=== PATIENT | male | born 1945 | race Caucasian/White ===

== ENCOUNTER 2017-04-29 15:34 | Emergency (ER) | payer OTHER ==
[~2017-04-29] VITALS: Ht 180.3 cm; Wt 82.3 kg
[2017-04-29 16:26] LABS: HEMATOCRIT 37.9 % (38.0-50.0); HEMOGLOBIN 12.8 G/DL (12.5-16.6); IMM.RETIC FRACTION 9.2 % (3-19); MCH 28.9 PG (29.0-34.0); MCHC 33.8 G/DL (30.0-36.0); MCV 85.6 FL (86-99); PLATELET COUNT 154 K/uL (156-360); RBC DIS.WIDTH-CV 15.2 % (11.8-14.6); RBC DIS.WIDTH-SD 46.9 % (39-53); RED BLOOD COUNT 4.43 M/uL (4.00-5.50); RETIC HGB EQUIVALENT 41.4 (28-36); RETICULOCYTE COUNT 0.4 % (0.5-1.8); WHITE BLOOD COUNT 2.6 K/uL (4.1-10.2)
[2017-04-29 16:36] LABS: ALBUMIN 3.6 g/dL (3.2-4.8)
[2017-04-29 16:37] LABS: CHLORIDE 106 mEq/L (99-109); POTASSIUM 4.3 mEq/L (3.7-5.4); SODIUM 135 mEq/L (136-147)
[2017-04-29 16:39] LABS: GLUCOSE 223 mg/dL (70-99); TOTAL PROTEIN 6.1 g/dL (6.4-8.3)
[2017-04-29 16:41] LABS: TOTAL BILIRUBIN 1.2 mg/dL (0.0-1.0)
[2017-04-29 16:42] LABS: ALKALINE PHOSPHATASE 105 IU/L (3-129)
[2017-04-29 16:43] LABS: CREATININE 0.8 mg/dL (0.6-1.3)
[2017-04-29 16:44] LABS: AST (GOT) 20 IU/L (2-34); UREA NITROGEN (BUN) 32 mg/dL (9-23)
[2017-04-29 16:45] LABS: ALT (GPT) 21 IU/L (3-49)
[2017-04-29 16:48] LABS: GFR ESTIMATE (CALCULATED) > 59 mL/min/ (58.99-99999); TROP-I INTERPRETATION NEGATIVE; TROPONIN-I < 0.01 ng/mL (0.0-0.30)
[2017-04-29] MEDS ORDERED: TAMIFLU75 MG PO (20:15)
[2017-04-29 20:56] VITALS: BP 118/72
== END 2017-04-29 20:58 | disposition home or self-care (01) ==
LOC: EME 15:34
PROVIDERS: Emergency Medicine Emergency Medical Services
DX: J06.9 Acute upper respiratory infection, unspecified (principal); E86.0 Dehydration; D75.9 Disease of blood and blood-forming organs, unspecified; E11.65 Type 2 diabetes mellitus with hyperglycemia; I25.2 Old myocardial infarction; F17.200 Nicotine dependence, unspecified, uncomplicated; Z86.73 Personal history of transient ischemic attack (TIA), and cerebral infarction without residual deficits; Z79.899 Other long term (current) drug therapy; Z88.8 Allergy status to other drugs, medicaments and biological substances
CPT/HCPCS: 71046; 80053; 83880; 84484; 85027; 85046; 87502; 93005; 99281; 99285; J7040

== ENCOUNTER 2017-08-25 22:10 | Inpatient (IN) | payer OTHER ==
[~2017-08-25] VITALS: Ht 180.3 cm; Wt 80.2 kg
[~2017-08-25 22:10] MED LIST: TAMIFLU75 MG PO
[2017-08-25 23:36] LABS: HEMATOCRIT 38.2 % (38.0-50.0); HEMOGLOBIN 12.1 G/DL (12.5-16.6); MCH 28.5 PG (29.0-34.0); MCHC 31.7 G/DL (30.0-36.0); MCV 90.1 FL (86-99); NRBC (%) 0.5 /100 WBC (0-0); PLATELET COUNT 191 K/uL (156-360); RBC DIS.WIDTH-CV 16.1 % (11.8-14.6); RBC DIS.WIDTH-SD 53.1 % (39-53); RED BLOOD COUNT 4.24 M/uL (4.00-5.50); WHITE BLOOD COUNT 4.3 K/uL (4.1-10.2)
[2017-08-25 23:42] LABS: INTER. NORMALIZED RATIO 1.1
[2017-08-25 23:44] LABS: PTT 29.8 SEC (25-37)
[2017-08-25 23:46] LABS: ALBUMIN 3.5 g/dL (3.2-4.8)
[2017-08-25 23:47] LABS: CHLORIDE 100 mEq/L (99-109); POTASSIUM 3.5 mEq/L (3.7-5.4); SODIUM 142 mEq/L (136-147)
[2017-08-25 23:49] LABS: GLUCOSE 194 mg/dL (70-99); TOTAL PROTEIN 6.1 g/dL (6.4-8.3)
[2017-08-25 23:51] LABS: TOTAL BILIRUBIN 0.5 mg/dL (0.0-1.0)
[2017-08-25 23:52] LABS: ALKALINE PHOSPHATASE 84 IU/L (3-129)
[2017-08-25 23:53] LABS: CREATININE 0.8 mg/dL (0.6-1.3); GFR ESTIMATE (CALCULATED) > 59 mL/min/ (58.99-99999)
[2017-08-25 23:54] LABS: AST (GOT) 16 IU/L (2-34); UREA NITROGEN (BUN) 19 mg/dL (9-23)
[2017-08-25 23:55] LABS: ALT (GPT) 16 IU/L (3-49)
[2017-08-25 23:56] LABS: LIPASE 25 U/L (1.0-51.0)
[2017-08-25 23:57] LABS: TROP-I INTERPRETATION NEGATIVE; TROPONIN-I < 0.01 ng/mL (0.0-0.30)
[2017-08-26 04:48] VITALS: BP 129/63
[2017-08-26 05:39] LABS: HEMATOCRIT 35.8 % (38.0-50.0); HEMOGLOBIN 11.3 G/DL (12.5-16.6); MCH 28.5 PG (29.0-34.0); MCHC 31.6 G/DL (30.0-36.0); MCV 90.4 FL (86-99); NRBC (%) 0.5 /100 WBC (0-0); PLATELET COUNT 193 K/uL (156-360); RBC DIS.WIDTH-CV 16.2 % (11.8-14.6); RBC DIS.WIDTH-SD 53.3 % (39-53); RED BLOOD COUNT 3.96 M/uL (4.00-5.50); WHITE BLOOD COUNT 3.8 K/uL (4.1-10.2)
[2017-08-26 05:49] LABS: CHLORIDE 102 mEq/L (99-109); POTASSIUM 4.1 mEq/L (3.7-5.4); SODIUM 137 mEq/L (136-147)
[2017-08-26 05:50] LABS: MAGNESIUM 1.8 mg/dL (1.3-2.7)
[2017-08-26 05:51] LABS: GLUCOSE 208 mg/dL (70-99)
[2017-08-26 05:55] LABS: CREATININE 0.7 mg/dL (0.6-1.3); GFR ESTIMATE (CALCULATED) > 59 mL/min/ (58.99-99999)
[2017-08-26 05:56] LABS: UREA NITROGEN (BUN) 16 mg/dL (9-23)
[2017-08-26 07:30] VITALS: BP 131/62
[2017-08-26 11:01] LABS: APPEARANCE CLEAR ((CLEAR)); BILIRUBIN NEGATIVE; BLOOD NEGATIVE; COLOR STRAW ((YELLOW)); GLUCOSE (STRIP) >=500; KETONES NEGATIVE; LEUKOCYTES NEGATIVE; NITRITE NEGATIVE; PROTEIN (STRIP) NEGATIVE; SPECIFIC GRAVITY 1.021 (1.000-1.030); UCUL ADDED? NO; UROBILINOGEN 0.2 MG/DL (0.2-1.0)
[2017-08-26 12:06] VITALS: BP 129/63
[2017-08-26] MEDS ORDERED: METOPROLOL TART50 MG PO (12:25)
[2017-08-26] MEDS ORDERED: PREDNISONE5 MG PO (12:25)
[2017-08-26] MEDS ORDERED: CALCIUM 600 MG1 EACH PO (12:27)
[2017-08-26] MEDS ORDERED: ATORVASTATIN CA80 MG PO (12:28)
[2017-08-26] MEDS ORDERED: LO-DOSE ASPIRIN81 M2 PO (12:28)
[2017-08-26] MEDS ORDERED: LISINOPRIL40 MG PO (12:29)
[2017-08-26] MEDS ORDERED: VITAMIN D31000 UNIT PO (12:29)
[2017-08-26] MEDS ORDERED: GLIPIZIDE10 MG PO (12:29)
[2017-08-26] MEDS ORDERED: ISOSORBIDE MONO30 MG PO (12:30)
[2017-08-26] MEDS ORDERED: PLAVIX75 MG PO (12:30)
[2017-08-26] MEDS ORDERED: NORVASC2.5 MG PO (12:30)
[2017-08-26] MEDS ORDERED: ONE DAILY MULT1 EACH PO (12:34)
[2017-08-26] MEDS ORDERED: DEXAMETHASONE4 MG PO (12:51)
[2017-08-26 14:08] LABS: TROP-I INTERPRETATION NEGATIVE; TROPONIN-I 0.01 ng/mL (0.0-0.30)
[2017-08-26 20:00] VITALS: BP 138/64
[2017-08-26] MEDS ORDERED: DILAUDID2 MG PO (22:54)
[2017-08-26] MEDS ORDERED: MS CONTIN,ORAMO15 M1 PO (22:55)
[2017-08-26 23:50] VITALS: BP 124/67
[2017-08-27 04:47] VITALS: BP 133/68
[2017-08-27 05:18] LABS: HEMATOCRIT 35.6 % (38.0-50.0); HEMOGLOBIN 11.1 G/DL (12.5-16.6); MCH 27.6 PG (29.0-34.0); MCHC 31.2 G/DL (30.0-36.0); MCV 88.6 FL (86-99); PLATELET COUNT 229 K/uL (156-360); RBC DIS.WIDTH-CV 15.9 % (11.8-14.6); RBC DIS.WIDTH-SD 52.2 % (39-53); RED BLOOD COUNT 4.02 M/uL (4.00-5.50); WHITE BLOOD COUNT 5.2 K/uL (4.1-10.2)
[2017-08-27 05:49] LABS: CHLORIDE 110 MEQ/L (99-109); CREATININE 0.7 MG/DL (0.6-1.3); GFR ESTIMATE (CALCULATED) > 59 mL/min/ (58.99-99999); GLUCOSE 235 mg/dL (70-99); SODIUM 141 MEQ/L (136-147); UREA NITROGEN (BUN) 16 mg/dL (9-23)
[2017-08-27 07:26] VITALS: BP 149/67
[2017-08-27] MEDS ORDERED: DUONEB 2.5-0.5 M3 ML PEP (10:47)
[2017-08-27] MEDS ORDERED: KEFLEX500 MG PO (10:48)
[2017-08-27] MEDS ORDERED: PREDNISONE10 MG PO (10:49)
== END 2017-08-27 12:30 | disposition hospice, home (50) | DRG 189 ==
LOC: EME 22:10 → 4EAST 08-26 03:12 → EDOF 08-26 03:12 → ENRESERV 08-26 03:15 → 4EAST 08-26 04:44
PROVIDERS: Emergency Medicine; Internal Medicine; Internal Medicine Cardiovascular Disease
DX: J96.01 Acute respiratory failure with hypoxia (principal); I47.2 Ventricular tachycardia; J44.1 Chronic obstructive pulmonary disease with (acute) exacerbation; J44.0 Chronic obstructive pulmonary disease with (acute) lower respiratory infection; J20.9 Acute bronchitis, unspecified; I95.9 Hypotension, unspecified; C79.51 Secondary malignant neoplasm of bone; E11.65 Type 2 diabetes mellitus with hyperglycemia; E86.0 Dehydration; E86.1 Hypovolemia; C61 Malignant neoplasm of prostate; G89.3 Neoplasm related pain (acute) (chronic); E87.6 Hypokalemia; J98.11 Atelectasis; I25.10 Atherosclerotic heart disease of native coronary artery without angina pectoris; Z95.5 Presence of coronary angioplasty implant and graft; F17.210 Nicotine dependence, cigarettes, uncomplicated; I25.2 Old myocardial infarction; E78.5 Hyperlipidemia, unspecified; I10 Essential (primary) hypertension; Z79.84 Long term (current) use of oral hypoglycemic drugs; Z51.5 Encounter for palliative care; S20.219D Contusion of unspecified front wall of thorax, subsequent encounter; M48.56XD Collapsed vertebra, not elsewhere classified, lumbar region, subsequent encounter for fracture with routine healing; W19.XXXD Unspecified fall, subsequent encounter
CPT/HCPCS: 71250; 71275; 72131; 74176; 80048; 80053; 81003; 82948; 83690; 83735; 83880; 84484; 85027; 85610; 85730; 87040; 87070; 87205; 93005; 94640; 94640 76; 94667; 94799; 99202; 99281; 99285; J0456; J0692; J0696; J1650; J1815; J2920; J3010; J7030